=== PATIENT | male | born 1945 | race African-American/Black ===

== ENCOUNTER 2021-09-02 05:51 | Emergency (ER) | payer BC, MEDICARE ==
[~2021-09-02] VITALS: Ht 177.8 cm; Wt 74.0 kg
[2021-09-02 06:13] LABS: BASO % 1 % (0-3); EOS # 0.2 x10^3/uL (0.0-0.7); EOS % 4 % (0-3); HEMOGLOBIN 12.8 g/dL (13.0-17.5); LYMPH # 2.9 x10^3/uL (1.0-4.8); LYMPH % 54 % (24-48); MEAN CORPUSCULAR HEMOGLOBIN 30 pg (25-35); MEAN CORPUSCULAR HGB CONC 33 g/dL (31-37); MEAN CORPUSCULAR VOLUME 91 fL (79-100); MONO # 0.6 x10^3/uL (0.0-1.1); MONO % 12 % (0-9); NEUT # 1.6 x10^3/uL (1.8-7.7); NEUT % 30 % (31-73); PLATELET COUNT 215 x10^3/uL (140-400); RED BLOOD COUNT 4.29 x10^6/uL (4.30-5.70); RED CELL DISTRIBUTION WIDTH 15.1 % (11.5-14.5); WHITE BLOOD COUNT 5.3 x10^3/uL (4.0-11.0)
[2021-09-02 06:21] LABS: PROTHROMBIN TIME PATIENT 12.8 SEC (11.7-14.0)
[2021-09-02] MEDS ORDERED: ASPIRIN 325 MG TABLET PO ONE (06:30)
--- NOTE | 2021-09-02 06:41 | RAD ---
XR CHEST 1V Clinical Indication: Reason: CP / Spl. Instructions: / History: Comparison: None. Findings: Mildly tortuous thoracic aorta. The cardiomediastinal silhouette is normal. Lungs are clear. There is no pneumothorax. No pleural effusion is appreciated. No acute bone abnormality. There is arthropathy the bilateral shoulders. IMPRESSION: No acute cardiopulmonary process. Electronically signed by: Robert Berman MD (09/02/2021 6:39 AM) [facility]
[2021-09-02 06:45] LABS: CALCIUM 8.7 mg/dL (8.5-10.1); CREATININE 1.1 mg/dL (0.7-1.3); GFR 65.6; POTASSIUM 3.6 mmol/L (3.5-5.1)
--- NOTE | 2021-09-02 06:47 | EKG ---
[facility] [address] [place] [id number] Test Date: 2021-09-02 Test Time: 05:59:15 Pat Name: MALU DIANE Department: Room: Gender: M [employer]: : 1945 Requested By: RAMÍREZ Pires Number: [id number] Reading MD: Elias Valera Measurements Intervals [place] Rate: 56 P: 53 NH: 208 QRS: 25 QRSD: 104 T: 16 QT: 424 QTc: 412 Interpretive Statements SINUS RHYTHM Electronically Signed On 09-02-2021 17:06:08 CDT by Elias Valera
[2021-09-02 06:51] LABS: ALBUMIN 3.5 g/dL (3.4-5.0); ALBUMIN/GLOBULIN RATIO 1.1 (1.0-1.7); TOTAL BILIRUBIN 0.4 mg/dL (0.2-1.0); TOTAL PROTEIN 6.7 g/dL (6.4-8.2)
[2021-09-02 07:27] VITALS: BP 109/67
--- NOTE | 2021-09-02 07:41 | PHYS DOC ---
Past Medical History Additional Past Medical Histor: ANGINA Past Surgical History: Other Additional Past Surgical Histo: CARDIAC STENTS Smoking Status: Never Smoker Alcohol Use: None General Adult EDM: Chief Complaint: CHEST PAIN HPI: HPI: Patient is a 75 year old M who presents with 7 days of chest pain, patient states that he feels like he pulled a muscle, chest pain started after he was lifting a 40 pound weight at work. Patient states that pain is positional and sharp on the left side of his chest. Patient states that it comes and goes and only last for a few seconds. Patient states that he did have a catheterization in 2012 which showed some blockages however no stents were placed. Review of Systems: Review of Systems: Constitutional: Denies fever or chills. [] Eyes: Denies change in visual acuity. [] HENT: Denies nasal congestion or sore throat. [] Respiratory: Denies cough or shortness of breath. [] Cardiovascular: Positive chest pain now edema. [] GI: Denies abdominal pain, nausea, vomiting, bloody stools or diarrhea. [] : Denies dysuria. [] Musculoskeletal: Denies back pain or joint pain. [] Integument: Denies rash. [] Neurologic: Denies headache, focal weakness or sensory changes. [] Endocrine: Denies polyuria or polydipsia. [] Lymphatic: Denies swollen glands. [] Psychiatric: Denies depression or anxiety. [] Heart Score: C/O Chest Pain: Yes HEART Score for Chest Pain: HEART Score for Chest Pain Response (Comments) Value History Slighlty/Non-Suspicious 0 ECG Normal 0 Age > 65 2 Risk Factors 1 or 2 Risk Factors 1 Troponin < Normal Limit 0 Total 3 Risk Factors: Risk Factors: HTN, HLP Risk Scores: Score 0 - 3: 2.5% MACE over next 6 weeks - Discharge Home Current Medications: Current Medications Medications (Trade) Dose Ordered Sig/Yadi Start Time Stop Time Status Last Admin Dose Admin Aspirin (Neva Aspirin) 325 mg 1X ONCE 09/02/21 06:30 09/02/21 06:31 DC Allergies: Allergies: Allergies Coded Allergies Type Severity Reaction Last Updated Verified No Known Drug Allergies 09/02/21 No Physical Exam: PE: Constitutional: Well developed, well nourished, no acute distress, non-toxic appearance. [] HENT: Normocephalic, atraumatic, bilateral external ears normal, oropharynx moist, no oral exudates, nose normal. [] Eyes: PERRLA, EOMI, conjunctiva normal, no discharge. [] Neck: Normal range of motion, no tenderness, supple, no stridor. [] Cardiovascular:Heart rate regular rhythm, no murmur, positional chest pain [] Lungs & Thorax: Bilateral breath sounds clear to auscultation [] Abdomen: Bowel sounds normal, soft, no tenderness, no masses, no pulsatile masses. [] Skin: Warm, dry, no erythema, no rash. [] Back: No tenderness, no CVA tenderness. [] Extremities: No tenderness, no cyanosis, no clubbing, ROM intact, no edema. [] Neurologic: Alert and oriented X 3, normal motor function, normal sensory function, no focal deficits noted. [] Psychologic: Affect normal, judgement normal, mood normal. [] Current Patient Data: Labs: Laboratory Tests Test 09/02/21 06:00 09/02/21 06:24 White Blood Count 5.3 x10^3/uL (4.0-11.0) Red Blood Count 4.29 x10^6/uL (4.30-5.70) L Hemoglobin 12.8 g/dL (13.0-17.5) L Hematocrit 39.0 % (39.0-53.0) Mean Corpuscular Volume 91 fL (79-100) Mean Corpuscular Hemoglobin 30 pg (25-35) Mean Corpuscular Hemoglobin Concent 33 g/dL (31-37) Red Cell Distribution Width 15.1 % (11.5-14.5) H Platelet Count 215 x10^3/uL (140-400) Neutrophils (%) (Auto) 30 % (31-73) L Lymphocytes (%) (Auto) 54 % (24-48) H Monocytes (%) (Auto) 12 % (0-9) H Eosinophils (%) (Auto) 4 % (0-3) H Basophils (%) (Auto) 1 % (0-3) Neutrophils # (Auto) 1.6 x10^3/uL (1.8-7.7) L Lymphocytes # (Auto) 2.9 x10^3/uL (1.0-4.8) Monocytes # (Auto) 0.6 x10^3/uL (0.0-1.1) Eosinophils # (Auto) 0.2 x10^3/uL (0.0-0.7) Basophils # (Auto) 0.0 x10^3/uL (0.0-0.2) Prothrombin Time 12.8 SEC (11.7-14.0) Prothrombin Time INR 1.0 (0.8-1.1) Sodium Level 143 mmol/L (136-145) Potassium Level 3.6 mmol/L (3.5-5.1) Chloride Level 107 mmol/L (98-107) Carbon Dioxide Level 26 mmol/L (21-32) Anion Gap 10 (6-14) Blood Urea Nitrogen 19 mg/dL (8-26) Creatinine 1.1 mg/dL (0.7-1.3) Estimated GFR (Cockcroft-Gault) 65.6 BUN/Creatinine Ratio 17 (6-20) Glucose Level 100 mg/dL (70-99) H Calcium Level 8.7 mg/dL (8.5-10.1) Total Bilirubin 0.4 mg/dL (0.2-1.0) Aspartate Amino Transferase (AST) 24 U/L (15-37) Alanine Aminotransferase (ALT) 27 U/L (16-63) Alkaline Phosphatase 49 U/L (46-116) Troponin I High Sensitivity 11 ng/L (4-75) XK-Cey-H-Type Natriuretic Peptide 61 pg/mL (0-124) Total Protein 6.7 g/dL (6.4-8.2) Albumin 3.5 g/dL (3.4-5.0) Albumin/Globulin Ratio 1.1 (1.0-1.7) Lipase 82 U/L (73-393) Laboratory Tests 09/02/21 06:00 Laboratory Tests 09/02/21 06:24 Vital Signs: Vital Signs Date Time Temp Pulse Resp B/P (MAP) Pulse Ox O2 Delivery O2 Flow Rate FiO2 09/02/21 06:27 52 17 119/71 (87) 100 Room Air 09/02/21 05:52 98.3 98.3 EKG: EKG: Normal sinus rhythm, no abnormalities Radiology/Procedures: Radiology/Procedures: Chest x-ray within normal limits Impression: Costochondritis Course & Med Decision Making: Course & Med Decision Making Pertinent Labs and Imaging studies reviewed. (See chart for details) Seen and evaluated by myself, 75-year-old male with past medical history of coronary artery disease, no [place] in the past, presents with positional chest pain that started about a week ago. Patient states that it is positional, last for only a couple of seconds, sharp, on the left side of his chest. Does not seem consistent with acute coronary syndrome. This is also been lasting for about a week now. Patient states that he woke up this morning and was concerned, he states that no new symptoms have occurred. Otherwise patient is doing well no other symptoms. Labs within normal limits, imaging within normal limits as well as EKG. Patient currently without chest pain unless he moves his chest into the correct position for pain. Reviewed results with patient, instructed patient to follow-up with primary care physician in 1 to 2 weeks for review of medications. Patient agreed with plan. All questions answered. Patient stable at the time of discharge. Sonja Disclaimer: Sonja Disclaimer: This electronic medical record was generated, in whole or in part, using a voice recognition dictation system. Departure Departure Impression: Primary Impression: Costochondritis, acute Disposition: 01 HOME / SELF CARE / HOMELESS Condition: GOOD Patient Instructions: Costochondritis, [id number] Additional Instructions: Follow up with your primary care physician in 1-2 weeks Continue taking all of your medications RAMÍREZ SUMNER MD September 02, 2021 07:41
== END 2021-09-02 07:55 | disposition home or self-care (01) ==
LOC: ER 05:51
DX: M94.0 Chondrocostal junction syndrome [Tietze] (principal); Z95.5 Presence of coronary angioplasty implant and graft
CPT/HCPCS: 36415; 71045; 80053; 83690; 83880; 84484; 85025; 85610; 93005; 99285-25